=== PATIENT | female | born 1955 | race African-American/Black ===

== ENCOUNTER 2020-07-28 10:04 | Outpatient (CLI) | payer MEDICARE, OTHER | END 2020-07-28 10:05 | disposition home or self-care (01) | LOC: CSHMAMMO 10:04 | PROVIDERS: ATTEND Internal Medicine | DX: Z12.31 Encounter for screening mammogram for malignant neoplasm of breast (principal) | CPT/HCPCS: 77063; 77067 ==

== ENCOUNTER 2021-02-02 17:02 | Emergency (ER) | payer MEDICARE, OTHER | END 2021-02-02 19:04 | disposition home or self-care (01) | LOC: CSHERS 17:02 | DX: K04.7 Periapical abscess without sinus (principal); K02.9 Dental caries, unspecified; K03.81 Cracked tooth; I10 Essential (primary) hypertension; H40.9 Unspecified glaucoma | CPT/HCPCS: 99282 ==

== ENCOUNTER 2021-08-05 13:54 | Outpatient (CLI) | payer OTHER | END 2021-08-05 13:55 | disposition home or self-care (01) | LOC: CSHMAMMO 13:54 | PROVIDERS: ATTEND Family Medicine | DX: Z12.31 Encounter for screening mammogram for malignant neoplasm of breast (principal); Z80.3 Family history of malignant neoplasm of breast | CPT/HCPCS: 77067 ==

== ENCOUNTER 2023-02-18 09:48 | Outpatient (CLI) | payer OTHER | END 2023-02-18 09:49 | disposition home or self-care (01) | LOC: CSHMAMMO 09:48 | PROVIDERS: ATTEND Family Medicine | DX: Z12.31 Encounter for screening mammogram for malignant neoplasm of breast (principal); Z80.3 Family history of malignant neoplasm of breast | CPT/HCPCS: 77063; 77067 ==